=== PATIENT | male | born 1955 | race Caucasian/White ===

== ENCOUNTER → 2017-01-11 | Outpatient (CLI) | payer OTHER ==
[~2017-01-11] MED LIST: PROTONIX40 MG PO; SEROQUEL50 MG PO; VENTOLIN HFA8 GM INH; ZOLOFT100 MG PO
== END ==
LOC: EMI 15:10
DX: M54.5 Low back pain (principal); M54.6 Pain in thoracic spine; M99.73 Connective tissue and disc stenosis of intervertebral foramina of lumbar region; M47.814 Spondylosis without myelopathy or radiculopathy, thoracic region
CPT/HCPCS: 72146; 72148

== ENCOUNTER 2020-11-21 16:46 | Emergency (ER) | payer MEDICARE, OTHER ==
[2020-11-21 17:54] LABS: RED BLOOD COUNT 4.9 M/UL (4.20-5.50); WHITE BLOOD COUNT 12.2 K/UL (4.5-11.0)
[2020-11-21 18:19] LABS: BUN/CREATININE RATIO 24 (0-10)
== END 2020-11-21 19:40 | disposition home or self-care (01) ==
LOC: ER1 16:46
PROVIDERS: Family Medicine
DX: R42 Dizziness and giddiness (principal); R11.0 Nausea; R29.700 NIHSS score 0; Z86.73 Personal history of transient ischemic attack (TIA), and cerebral infarction without residual deficits; Z79.82 Long term (current) use of aspirin
CPT/HCPCS: 36415; 70450; 80053; 82550; 82553; 82962; 83874; 84484; 85025; 85610; 93005; 96374; 99285; J2405